=== PATIENT | male | born 1950 | race Caucasian/White ===

== ENCOUNTER → 2016-09-02 | Outpatient (CLI) | payer MEDICARE, BC ==
[~2016-09-02] MED LIST: ADVAIR 100/28 DISKUS IH; AEROSPAN INH; ALPRAZOLAM; CLARITIN 1010 MG/TAB PO; DULCOLAX TAB5 MG PO; LEVAQUIN 750MG750 M1 PO; NORCO 325 MG-7.1 TAB PO; PRILOSEC 20MG20 MG PO; PRILOSEC10 MG PO; ROBAXIN 75750 MG/TAB PO; RT ADVAIR 228 DISKUS IH; SINGULAIR; SINGULAIR 110 MG/TAB PO; XANAX 0.5MG0.5 MG PO
== END ==
LOC: COL.RAD 10:21
DX: R10.84 Generalized abdominal pain (principal)
CPT/HCPCS: Q9967

== ENCOUNTER → 2016-12-02 | Outpatient (CLI) | payer MEDICARE, BC ==
[2006-10-23 05:48] VITALS: BP 112/63
[~2016-12-02] VITALS: Ht 175.3 cm; Wt 69.6 kg
[2016-12-02 09:14] VITALS: BP 108/70; PULSE 69
[2016-12-02 10:46] VITALS: BP 97/60; PULSE 64
[2016-12-02 10:50] VITALS: BP 98/67; PULSE 68
[2016-12-02 11:05] VITALS: BP 100/67; PULSE 65
== END ==
LOC: COL.RAD 08:40
DX: M48.07 Spinal stenosis, lumbosacral region (principal); M47.27 Other spondylosis with radiculopathy, lumbosacral region
CPT/HCPCS: A9585; J2250; J2704

== ENCOUNTER 2018-07-26 23:09 | Emergency (ER) | payer MEDICARE, BC ==
[2006-10-23 05:48] VITALS: BP 112/63
[~2018-07-26] VITALS: Ht 175.3 cm; Wt 75.0 kg
[2018-07-26 23:21] VITALS: BP 107/73; TEMP 97.4
[2018-07-27] MEDS ORDERED: FLOVENT 110MCG7.9 GM IH (00:42)
[2018-07-27] MEDS ORDERED: AKTOB 5 ML5 ML OP ×2 (00:44→00:46)
[2018-07-27 01:26] VITALS: PULSE 72
== END 2018-07-27 01:27 | disposition home or self-care (01) ==
LOC: COL.ER 23:09
DX: T15.92XA Foreign body on external eye, part unspecified, left eye, initial encounter (principal); Y99.8 Other external cause status

== ENCOUNTER → 2019-03-30 | Outpatient (CLI) | payer MEDICARE, BC ==
[2006-10-23 05:48] VITALS: BP 112/63
[~2019-03-30] VITALS: Ht 175.3 cm; Wt 70.9 kg
[~2019-03-30] MED LIST changes: +AKTOB 5 ML5 ML OP; +FLOVENT 110MCG7.9 GM IH
[2019-03-30 12:16] VITALS: BP 131/77; PULSE 73
[2019-03-30 13:45] VITALS: BP 103/60; PULSE 65
[2019-03-30 14:00] VITALS: BP 112/63; PULSE 62
[2019-03-30 14:15] VITALS: BP 112/76; PULSE 62
--- NOTE | 2019-03-30 14:25 | NUR ---
PT TAKEN DOWN BY WHEELCHAIR TO POV. PT GOT INTO POV BY HIMSELF.
== END ==
LOC: COL.RAD 11:53
DX: M47.816 Spondylosis without myelopathy or radiculopathy, lumbar region (principal); G89.29 Other chronic pain
CPT/HCPCS: J2250; J2704

== ENCOUNTER → 2019-05-17 | Outpatient (CLI) | payer MEDICARE, BC | LOC: MHCPAIN 08:09 | DX: M47.817 Spondylosis without myelopathy or radiculopathy, lumbosacral region (principal); M54.16 Radiculopathy, lumbar region | CPT/HCPCS: G0463 ==

== ENCOUNTER → 2019-08-24 | Outpatient (RCR) | payer MEDICARE, BC | END | disposition home or self-care (01) | LOC: WSPT | DX: M96.1 Postlaminectomy syndrome, not elsewhere classified (principal); M53.3 Sacrococcygeal disorders, not elsewhere classified; M47.27 Other spondylosis with radiculopathy, lumbosacral region; G89.29 Other chronic pain ==

== ENCOUNTER 2019-09-07 15:30 | Outpatient (RCR) | payer MEDICARE, BC | END 2019-11-02 15:10 | disposition home or self-care (01) | LOC: WSPT 15:30 | DX: M53.3 Sacrococcygeal disorders, not elsewhere classified (principal); M96.1 Postlaminectomy syndrome, not elsewhere classified; M47.817 Spondylosis without myelopathy or radiculopathy, lumbosacral region; M54.16 Radiculopathy, lumbar region ==

== ENCOUNTER → 2019-09-13 | Outpatient (CLI) | payer MEDICARE, BC | LOC: MHCPAIN 07:56 | DX: M96.1 Postlaminectomy syndrome, not elsewhere classified (principal); M54.5 Low back pain; G89.29 Other chronic pain | CPT/HCPCS: G0463 ==

== ENCOUNTER → 2019-09-22 | Outpatient (CLI) | payer MEDICARE, BC | LOC: MHCPAIN 13:14 | DX: M47.817 Spondylosis without myelopathy or radiculopathy, lumbosacral region (principal); M96.1 Postlaminectomy syndrome, not elsewhere classified; M54.5 Low back pain | CPT/HCPCS: J1100; Q9967 ==

== ENCOUNTER → 2019-10-05 | Outpatient (CLI) | payer MEDICARE, BC | LOC: MHCPAIN 08:55 | DX: M47.817 Spondylosis without myelopathy or radiculopathy, lumbosacral region (principal); M54.5 Low back pain; M53.3 Sacrococcygeal disorders, not elsewhere classified; M96.1 Postlaminectomy syndrome, not elsewhere classified; M54.16 Radiculopathy, lumbar region | CPT/HCPCS: G0463 ==

== ENCOUNTER → 2019-10-06 | Outpatient (CLI) | payer MEDICARE, BC | LOC: MHCPAIN 12:43 | DX: M47.818 Spondylosis without myelopathy or radiculopathy, sacral and sacrococcygeal region (principal); M53.3 Sacrococcygeal disorders, not elsewhere classified | CPT/HCPCS: G0260; J1040; Q9967 ==

== ENCOUNTER → 2019-10-19 | Outpatient (CLI) | payer MEDICARE, BC | LOC: MHCPAIN 09:19 | DX: M47.818 Spondylosis without myelopathy or radiculopathy, sacral and sacrococcygeal region (principal); M53.3 Sacrococcygeal disorders, not elsewhere classified; M54.5 Low back pain; M96.1 Postlaminectomy syndrome, not elsewhere classified; G89.29 Other chronic pain | CPT/HCPCS: G0463 ==

== ENCOUNTER 2020-01-17 16:45 | Outpatient (RCR) | payer MEDICARE, BC | END 2020-01-24 | disposition home or self-care (01) | LOC: WSPT | DX: M53.3 Sacrococcygeal disorders, not elsewhere classified (principal); M47.817 Spondylosis without myelopathy or radiculopathy, lumbosacral region; M96.1 Postlaminectomy syndrome, not elsewhere classified; M54.16 Radiculopathy, lumbar region ==

== ENCOUNTER 2020-07-13 15:45 | Outpatient (RCR) | payer MEDICARE, BC | END 2020-08-21 | disposition still patient (30) | LOC: WSPT | DX: G89.29 Other chronic pain (principal); M54.5 Low back pain ==

== ENCOUNTER 2021-06-07 15:00 | Outpatient (RCR) | payer MEDICARE, BC | END 2021-06-10 | disposition home or self-care (01) | LOC: WSPT | DX: M54.9 Dorsalgia, unspecified (principal); G89.29 Other chronic pain ==

== ENCOUNTER 2021-07-09 15:00 | Outpatient (RCR) | payer MEDICARE, BC | END 2021-07-11 | disposition home or self-care (01) | LOC: WSPT | DX: M54.50 Low back pain, unspecified (principal); G89.29 Other chronic pain ==

== ENCOUNTER 2021-08-07 15:45 | Outpatient (RCR) | payer MEDICARE, BC | END 2021-08-10 | disposition home or self-care (01) | LOC: WSPT | DX: M54.50 Low back pain, unspecified (principal); G89.29 Other chronic pain ==

== ENCOUNTER → 2021-09-10 | Outpatient (RCR) | payer MEDICARE, BC | END | disposition still patient (30) | LOC: WSPT | DX: M54.9 Dorsalgia, unspecified (principal); G89.29 Other chronic pain ==

== ENCOUNTER 2021-09-12 14:41 | Outpatient (RCR) | payer MEDICARE, BC | END 2021-09-12 16:00 | disposition home or self-care (01) | LOC: WSPT 14:41 | DX: M54.50 Low back pain, unspecified (principal); G89.29 Other chronic pain ==

== ENCOUNTER 2022-07-03 15:45 | Outpatient (RCR) | payer MEDICARE, BC | END 2022-07-11 | disposition home or self-care (01) | LOC: WSPT | DX: M54.50 Low back pain, unspecified (principal); G89.29 Other chronic pain ==

== ENCOUNTER 2022-08-06 15:45 | Outpatient (RCR) | payer MEDICARE, BC | END 2022-08-10 | disposition home or self-care (01) | LOC: WSPT | DX: M51.36 Other intervertebral disc degeneration, lumbar region (principal) ==

== ENCOUNTER 2023-01-09 13:00 | Outpatient (RCR) | payer MEDICARE, BC | END 2023-01-10 | disposition still patient (30) | LOC: PT.GENESIS | DX: M51.36 Other intervertebral disc degeneration, lumbar region (principal) | CPT/HCPCS: G0283-GP ==

== ENCOUNTER 2023-04-10 15:45 | Outpatient (RCR) | payer MEDICARE, BC | END 2023-04-12 | disposition home or self-care (01) | LOC: WSPT | DX: M51.36 Other intervertebral disc degeneration, lumbar region (principal) ==

== ENCOUNTER → 2023-05-13 | Outpatient (RCR) | payer MEDICARE, BC | END | disposition home or self-care (01) | LOC: WSPT | DX: M51.36 Other intervertebral disc degeneration, lumbar region (principal) ==

== ENCOUNTER 2023-06-09 15:45 | Outpatient (RCR) | payer MEDICARE, BC | END 2023-06-11 | disposition home or self-care (01) | LOC: WSPT | DX: M51.36 Other intervertebral disc degeneration, lumbar region (principal) ==

== ENCOUNTER 2023-07-09 15:45 | Outpatient (RCR) | payer MEDICARE, BC | END 2023-07-12 | disposition home or self-care (01) | LOC: WSPT | DX: M51.36 Other intervertebral disc degeneration, lumbar region (principal) ==

== ENCOUNTER 2023-12-31 15:45 | Outpatient (RCR) | payer MEDICARE, BC | END 2024-01-11 | disposition home or self-care (01) | LOC: WSPT | DX: M51.36 Other intervertebral disc degeneration, lumbar region (principal) ==

== ENCOUNTER → 2024-02-11 | Outpatient (RCR) | payer MEDICARE, BC | LOC: WSPT | DX: M51.360 Other intervertebral disc degeneration, lumbar region with discogenic back pain only (principal) ==